=== PATIENT | male | born 2000 ===

== ENCOUNTER 2023-01-29 15:28 | Observation (INO) | payer OTHER ==
[~2023-01-29] VITALS: Ht 170.2 cm; Wt 60.2 kg
[2023-01-29 16:00] VITALS: BP 107/70; PULSE 84; TEMP 98
--- NOTE | 2023-01-29 16:00 | NUR ---
PRIMARY NURSE SAMIA RN. KLYSTROM TUBE TESTER IN THE ROOM UPON ADMISSION.
--- NOTE | 2023-01-29 16:00 | NUR ---
PATIENT ARRIVED ON UNIT AT 1600. TRANSFERRED VIA EMS FROM [facility]. WAS ALERT AND ORIENTED. DENIES PAIN. VITAL SIGNS WIHTIN NORMAL LIMITS. IV SITE ON RIGHT ANTECUBITAL ARM CLEAN,DRY AND INTACT. AMBULATED FROM STRETCHER TO BED WITH NO ASSISTANCE.ORIENTATED TO THE ROOM, CALL LIGHT WITHIN REACH. NO FURTHER NEEDS.
--- NOTE | 2023-01-29 16:00 | NUR ---
Patient to room 302 from [facility] by stretcher. Stahl&Devin4. VSS. IV CDI. Denies pain and discomfort. Ambulated independently. Nurse oriented the patient to location, call light and room. No further needs expressed. Call light within reach
[2023-01-29 19:12] VITALS: BP 121/50; PULSE 82; TEMP 97.9
[2023-01-29 19:39] VITALS: BP_SYST 121
--- NOTE | 2023-01-29 19:41 | NUR ---
patient lying in bed, alert and oriented x4 with at bedside. pt denies chest pain, shortness of breath, and any stomch/abd discomfort. pt reports a small headache, offered comfort interventions such as massage and medication, pt refused at this time. pt aware of NPO status at midnight and verbally understands. IV in RAC is patent, site is clean dry and intact. pt has no f urther needs, questions, or concerns at this time. call light within reach, will continue to monitor.
[2023-01-29 23:31] VITALS: BP 98/58; PULSE 71; TEMP 98
[2023-01-30] VITALS (11 sets, daily range): BP systolic 85–106; BP diastolic 50–72; PULSE 64–87; TEMP 97.8–98.2
[2023-01-30 05:49] LABS: BASO % 0.6 % (0.0-2.0); EOS # 0.2 K/mm3 (0.0-0.7); EOS % 4.3 % (0.0-4.0); GRAN # 2.4 K/mm3 (1.4-6.5); HEMATOCRIT 37.5 % (42.0-52.0); HEMOGLOBIN 12.8 g/dl (13.5-18.0); LYMPH % 38.2 % (20.0-51.0); MEAN CELL VOLUME 93 fl (80.0-100.0); MEAN CORPUSCULAR HEMOGLOBIN 32 pg (27-31); MEAN CORPUSCULAR HGB CONC 34 g/dl (33.0-37.0); MEAN PLATELET VOLUME 10.4 fl (7.4-10.4); MONO # 0.5 K/mm3 (0.1-0.6); MONO % 9.7 % (1.7-9.3); PLATELET COUNT 209 K/mm3 (130-400); RED BLOOD COUNT 4.03 M/mm3 (4.20-5.60); REDCELL DISTRIBUTION WIDTH-CV 11.8 % (11.5-14.5)
[2023-01-30 06:05] LABS: ALBUMIN 3.7 gm/dL (3.5-5.0); BILIRUBIN,TOTAL 0.4 mg/dL (0.2-1.2); CALCIUM 8.8 mg/dL (8.4-10.2); CREATININE, serum 1.09 mg/dL (0.72-1.25); MAGNESIUM 1.9 mg/dL (1.6-2.6); POTASSIUM 4.2 mmol/L (3.5-4.5); TOTAL PROTEIN 6.3 gm/dL (6.2-8.1)
[2023-01-30 08:40] LABS: C-REACTIVE PROTEIN 0.15 mg/dL (0.00-0.50)
--- NOTE | 2023-01-30 11:47 | NUR ---
Patient c/o blurred vision and dizziness. Vital signs obtained, patient alert and oriented, pupils equal and reactive. Dr. Buitrago notified, verbal order for blood glucose check and one time glucose tablet administration.
--- NOTE | 2023-01-30 12:49 | NUR ---
Pt c/o nausea and headache. PRNs given as ordered. Updated Mocavo on patient's status when called.
--- NOTE | 2023-01-30 13:12 | NUR ---
Patient off the floor to [facility] med.
--- NOTE | 2023-01-30 15:17 | NUR ---
Patient back to room, stating he is feeling better. Denies nausea, dizziness, or vision changes, stating that he still has a little headache but it has improved.
--- NOTE | 2023-01-30 15:48 | NUR ---
Con[employer]er Truck Driver met with Patient's at bedside, Patient OSHERRI. Patient's reports that Patient lives with her in [place], [place] and is established with PCP, Insurance, and medication coverage through [employer]. She states that Patient does not have [employer] at this time. SW briefed [employer] form is available. Patient is anticipated to discharge home with no social service needs when medically ready.
--- NOTE | 2023-01-30 16:41 | NUR ---
Patient discharged to home, driven home by coworker. Educated on discharge instructions and follow up appointments, pt and verbalized understanding. IV and conveyor monitor removed prior to discharge. Assisted to car by nursing staff, all belongings sent home with patient.
[2023-02-01 15:12] LABS: KAPPA FREE LIGHT CHAIN-SERUM 16.8 mg/L (3.3-19.4)
== END 2023-01-30 16:35 | disposition home or self-care (01) ==
LOC: MEDICAL 15:28
PROVIDERS: Internal Medicine; Physician Assistant; ADMIT Hospitalist
DX: R07.9 Chest pain, unspecified (principal); R79.89 Other specified abnormal findings of blood chemistry; R74.01 Elevation of levels of liver transaminase levels; D64.9 Anemia, unspecified; R74.8 Abnormal levels of other serum enzymes; R74.02 Elevation of levels of lactic acid dehydrogenase [LDH]
CPT/HCPCS: A9500-JZ; G0378; G0379; J2405; J7030